=== PATIENT | male | born 1940 | race Caucasian/White ===

== ENCOUNTER 2017-07-29 08:46 | Day surgery (SDC) | payer MEDICARE ==
[~2017-07-29 08:46] MED LIST: Lidocaine 1% with EPINEPHrine 1:100,000 50 ML MDV ONE; Sodium Chloride 0.9% 0 ML ONE; Sodium Chloride 0.9% 10 ML ONE; Sodium Tetradecyl Sulfate 1% 20 MG/2 ML SDV ONE
[2017-07-29] MEDS ORDERED: Sodium Chloride 0.9% 1,000 ML IV SCH (09:15)
[2017-07-29] MEDS: Lidocaine 1% w/EPINEPHrine 50 ML, Sodium Bicarbonate 5 MEQ in Sodium Chloride 0.9% 950 ML INJECT SCH ×2 (10:45→11:19)
[2017-07-29] MEDS ORDERED: Propofol 200 MG/20 ML SDV ONE (10:58)
[2017-07-29] MEDS ORDERED: Acetaminophen 325 MG Tab PO PRN (12:28)
[2017-07-29 12:41] VITALS: BP 161/89
--- NOTE | 2017-08-23 09:31 | OR ---
DATE OF PROCEDURE: 07/29/2017 PROCEDURES: 1. Radiofrequency ablation of left greater saphenous vein. 2. Radiofrequency ablation of right greater saphenous vein. 3. Sclerotherapy, right leg, multiple. 4. Sclerotherapy, left leg, multiple. 5. Compression wrapping, left leg (50235). 6. Compression wrapping, right leg ([id number]). COMPLICATIONS: None. ALUMNI SECRETARY: None. ANESTHETIC: MAC/local. RISKS: Risks, benefits, alternatives, and limitations including, balance, infection, bleeding, and DVT were explained to the patient, and they wished to proceed. PROCEDURE IN DETAIL: The patient was placed in supine position. The left GSV was identified at the level of the ankle first. This was accessed performing a 21-gauge needle, then exchanged for a 35,000th wire, then exchanged for a 7-Marshallese sheath after local anesthetic was applied. The RFA probe was advanced to 3 cm from the saphenofemoral junction. This would be verified a second and third time. Tumescent fluid was injected in 1 cm jacket around this, and also verified a second and third time. A direct even pressure was held as the sheath was deployed x2 proximally and distally and x1 in all other segments. The sheath and device were then removed. Dermabond was applied after 10 minutes of pressure for hemostasis. The right leg was then performed in the same manner, same fashion, same technique, and same sequence using the same equipment. This would be verified a second and third time also. Two-layer complex compression wraps were then performed on the left and right legs using a [id number]-sk-htedm fashion. This was from the level of the foot all the way to the thigh. The patient tolerated the procedure well. Arnaldo Baptiste MD /[id number]
== END 2017-07-29 13:00 | disposition home or self-care (01) ==
LOC: JP.SDS 08:46
PROVIDERS: ATTEND Surgery
DX: I87.2 Venous insufficiency (chronic) (peripheral) (principal); I83.813 Varicose veins of bilateral lower extremities with pain; I10 Essential (primary) hypertension; E78.00 Pure hypercholesterolemia, unspecified; Z87.891 Personal history of nicotine dependence; Z98.890 Other specified postprocedural states
CPT/HCPCS: 29581; 36471; 36475; A9270; J1642; J2704; J7040; J7050; J3490

== ENCOUNTER 2018-04-28 08:20 | Day surgery (SDC) | payer MEDICARE ==
[~2018-04-28 08:20] MED LIST changes: +Midazolam 1 MG/ML 2 ML SDV ONE; +Propofol 200 MG/20 ML SDV ONE; -Sodium Chloride 0.9% 0 ML ONE; +Sodium Chloride 0.9% 1,000 ML IV SCH; +fentaNYL 100 MCG/2 ML SDV ONE
[2018-04-28] MEDS ORDERED: Lidocaine 1% w/EPINEPHrine 50 ML, Sodium Bicarbonate 5 MEQ in Sodium Chloride 0.9% 950 ML INJECT ONE (09:45)
[2018-04-28] MEDS ORDERED: fentaNYL 100 MCG/2 ML SDV ONE (10:30)
[2018-04-28 11:30] VITALS: BP 139/80
--- NOTE | 2018-04-28 12:40 | OR ---
DATE OF PROCEDURE: 04/28/2018 PROCEDURES: 1. Radiofrequency ablation of left greater saphenous vein. 2. Sclerotherapy, left leg, multiple. 3. Compression wrap, left leg, ([id number]). COMPLICATIONS: None. CULINARY INSTRUCTOR: None. PREOPERATIVE DIAGNOSIS: Venous insufficiency with inflammation and pain. POSTOPERATIVE DIAGNOSIS: Venous insufficiency with inflammation and pain. RISKS: Risks, benefits, alternatives, and limitations including, but not limited to infection, bleeding, perforation, and DVT formation were explained to the patient, and they wished to proceed. PROCEDURE IN DETAIL: The patient was placed in supine position. The left greater saphenous vein was accessed at the level of the ankle. This was very tortuous; therefore, the examiner of currency probe RFA device would be used. Skin was anesthetized with lidocaine. The probe was introduced in 4 separate locations, and the greater saphenous vein would be destroyed after injecting tumescent fluid. Sclerotherapy was then performed on the left leg, 3 on the left, using 0.33% sodium tetradecyl. This was injected and always drawn back to ensure intravascular injection only. Wound was closed with Dermabond. Two-layer two-stage compression wrapping, 20 mm, gyoyka-lb-hsdzxpyh gradient was performed. The patient tolerated the procedure well. Arnaldo Baptiste MD /[id number]
== END 2018-04-28 11:59 | disposition home or self-care (01) ==
LOC: JP.SDS 08:20
PROVIDERS: ATTEND Surgery
DX: I87.2 Venous insufficiency (chronic) (peripheral) (principal); I83.812 Varicose veins of left lower extremity with pain; I25.2 Old myocardial infarction; I10 Essential (primary) hypertension; M16.0 Bilateral primary osteoarthritis of hip; Z79.82 Long term (current) use of aspirin; Z79.899 Other long term (current) drug therapy
CPT/HCPCS: 36471; 36475; J1642; J2250; J2704; J3010; J7030; J7050; J3490